=== PATIENT | female | born 1975 | race Caucasian/White ===

== ENCOUNTER → 2022-04-13 10:59 | Outpatient (CLI) | payer OTHER, SELFPAY ==
[2022-04-13 11:37] LABS: COVID19 -Nasal RAPID Negative (Negative)
== END ==
PROVIDERS: PCP Family Medicine; Visit Provider Surgery
DX: Z20.822 Contact with and (suspected) exposure to COVID-19 (principal); Z01.812 Encounter for preprocedural laboratory examination
CPT/HCPCS: 87635; C9803

== ENCOUNTER 2022-04-16 07:47 | Day surgery (SDC) | payer OTHER, SELFPAY ==
[2022-04-16 08:11] VITALS: BP 125/77; PULSE 80; RESP 16; TEMP 36.2; O2SAT 94
[2022-04-16 08:12] VITALS: BMI 29.1
[2022-04-16] MEDS: LACTATED RINGERS 1,000 ML 100 ML IV (08:31)
--- NOTE | 2022-04-16 08:32 | PM.HP.1 ---
History of Present Illness History of Present Illness Date Patient Seen: 04/16/22 Time Patient Seen: 08:32 Chief complaint: DX COLONOSCOPY Narrative: Family history of colon cancer Patient History Family & Social History Social History: household members spouse Tobacco & Substance use: Smoking Status Former smoker alcohol intake current alcohol intake frequency a few times a week Substance Use Type does not use Meds Home Medications and Allergies Home Medications Medication Instructions Recorded Confirmed Type levothyroxine 112 mcg tablet 112 mcg PO DAILY 04/13/22 04/16/22 History (Synthroid) valacyclovir 1 gram tablet 1,000 mg PO DAILY PRN MDD 1000 mg 04/13/22 04/16/22 History Allergies Allergy/AdvReac Type Severity Reaction Status Date / Time codeine AdvReac Intermediate Vomiting Verified 04/16/22 08:07 Sulfa (Sulfonamide AdvReac Intermediate Nausea Verified 04/16/22 08:07 Antibiotics) Review of Systems Review of Systems ROS: Yes All systems reviewed with the patient and are negative except as otherwise documented Exam Vital Signs (past 8 hours): - 04/16/22 08:11 Temperature 97.2 F L Pulse Rate 80 Respiratory Rate 16 Blood Pressure 125/77 Pulse Oximetry 94 Oxygen Delivery Method Room Air Const General: cooperative and comfortable Orientation: alert HENMT Head: normocephalic Ears: external ears normal Nose: external nose normal Face and sinus: normal facial exam Mouth: oral mucosae normal Eyes General: appearance normal, both eyes and all related structures Neck Neck: normal visual inspection Chest Chest: normal inspection of the chest Resp Effort & Inspection: normal respiratory effort Cardio Rate: regular rate GI Inspection: normal to inspection Skin General: no rashes or lesions noted and No jaundice Neuro General: patient alert and moves all extremities Cognition: normal cognition Speech: speech normal Extrem General: no pedal edema Psych Appearance: grossly normal Assessment & Plan Assessment & Plan narrative: 46-year-old female with a family history of colon cancer. Colonoscopy is pursued for today. Time Spent With Patient Critical Care time: I spent a total of [] minutes of critical care time on this patient's care today; this time is exclusive of procedural time.
--- NOTE | 2022-04-16 08:33 | PM.PREOP ---
Pre-operative Note COVID-19 COVID-19 status: Negative Result date/Date tested (Pos, Neg/Pending): 04/13/22 Criteria for continued procedure: Possibility delay results in more complex future surgery or treatment Interval Note History & Physical reviewed/Exam performed by Physician: Yes Changes to H&P: No ASA Class (for procedural sedation): II
--- NOTE | 2022-04-16 09:28 | PM.OP.COLON ---
Operative Date/Time/Diagnoses Date of procedure: 04/16/22 Time of procedure: 09:28 Pre-op diagnosis: Family history of colon cancer Post-op diagnosis: same Procedure & Clinicians Study performed: Colonoscopy Same procedure as scheduled: Yes Indications: Family history of colon cancer Surgeon: Viral Luna Procedure Notes SCOAP/Timeout: Done Procedure in detail: After the risks and benefits were explained, written and verbal informed consent was obtained. The patient was brought into the procedure room and placed into the left lateral decubitus position. Please see nurse miniature set constructor notes for sedation details. Digital rectal examination was accomplished. The scope was introduced into the patient and advanced under direct visualization to the cecum as identified by the appendiceal orifice and ileocecal valve. The scope was slowly withdrawn to carefully examine the mucosa for any defects or lesions. Comprehensive imaging was accomplished throughout the rectum including the dentate line. The colon was decompressed, the scope was then removed from the patient who tolerated the procedure well. Pediatric colonoscope Bowel prep adequate Scope withdrawal time: 6 minutes Sedation minutes: 11 Specimen(s): none sent Complications: none Impression: No significant polyps mass lesions or inflammatory features identified throughout. The terminal ileum was interrogated and appeared visually normal. Grade 1 internal hemorrhoids were noted on direct views. Endoscopic diagnosis 1. Mild grade 1 internal hemorrhoids 2. Otherwise visually normal colonoscopy Post-procedure Recommendations: Colonoscopy in 5 years Plan for aftercare: Repeat colonoscopy in 5 years considering family history. Disposition: PACU
[2022-04-16 09:30] VITALS: BP 116/74; PULSE 82; RESP 16; TEMP 36.2; O2SAT 98
[2022-04-16 09:35] VITALS: BP 121/74; PULSE 77; RESP 16; O2SAT 98
[2022-04-16 09:40] VITALS: BP 126/73; PULSE 75; RESP 17; O2SAT 99
[2022-04-16 09:47] VITALS: BP 117/74; PULSE 79; RESP 17; TEMP 36.3; O2SAT 99
== END 2022-04-16 10:09 | disposition home or self-care (01) ==
PROVIDERS: PCP Family Medicine; Referring Provider Internal Medicine Gastroenterology; Visit Provider Internal Medicine Gastroenterology
PROC: 0DJD8ZZ Inspection of Lower Intestinal Tract, Via Natural or Artificial Opening Endoscopic (ICD-10-PCS; CPT 45378; principal; 2022-04-16 09:00)
DX: Z12.11 Encounter for screening for malignant neoplasm of colon (principal); Z80.0 Family history of malignant neoplasm of digestive organs; K64.0 First degree hemorrhoids
CPT/HCPCS: 45378; 81025; J2704